=== PATIENT | male | born 1990 | race Two or more races ===

== ENCOUNTER 2025-01-02 23:38 | Inpatient (IN) | payer MEDICAID, OTHER ==
[~2025-01-02] VITALS: Ht 190.5 cm; Wt 52.7 kg
[2025-01-03] VITALS (13 sets, daily range): BP systolic 102–138; BP diastolic 65–92; PULSE 85–114; RESP 17–20; TEMP 97.9; O2SAT 95–100
--- NOTE | 2025-01-03 00:15 | ED.PDOC ---
History of Present Illness HPI Comments 34-year-old male who came to ER for flu-like symptoms. Patient is paraplegic, recently admitted for urinary tract infection, signed AMA 2 days ago. At home, patient apparently felt better until few hours ago when patient started having flu like symptoms, with congestion, cough, body malaise, weakness. Chief Complaint: Flu like Time Seen by MD: 00:15 Reviewed Notes: Nurses Notes Allergies: Coded Allergies: NO KNOWN ALLERGIES (Unverified , 01/02/25) Information Source: Patient Mode of Arrival: EMS Severity: Moderate Timing: Hours Duration: Since onset Prehospital treatment: None Past Medical History PAST MEDICAL HISTORY: UTI'S Past Medical History (Other): Paraplegic Surgical History: AKA Family History Family History: Reviewed,noncontributory to illness Social History Smoker: Non-Smoker Alcohol: Denies ETOH Use Drugs: Denies Drug Use Lives In: Home Constitutional: reports: fatigue, malaise, weakness; denies: chills, diaphoresis, fever, sweats, others EENTM: reports: nose congestion; denies: blurred vision, double vision, ear bleeding, ear discharge, ear drainage, ear pain, ear ringing, eye pain, eye redness, hearing loss, mouth pain, mouth swelling, nasal discharge, nose bleeding, nose pain, photophobia, tearing, throat pain, throat swelling, voice changes, others Respiratory: reports: cough, SOB at rest; denies: hemoptysis, orthopnea, shortness of breath, SOB with excertion, stridor, wheezing, others Cardiovascular: denies: chest pain, dizzy spells, diaphoresis, Dyspnea on exertion, edema, irregular heart beat, left arm pain, lightheadedness, palpitations, PND, syncope, others Gastrointestinal: denies: abdomen distended, abdominal pain, blood streaked bowels, constipated, diarrhea, dysphagia, difficulty swallowing, hematemesis, melena, nausea, poor appetite, poor fluid intake, rectal bleeding, rectal pain, vomiting, others Genitourinary: denies: burning, dysuria, flank pain, frequency, hematuria, incontinence, penile discharge, penile sore, pain, testicle pain, testicle swelling, urgency, others Neurological: denies: dizziness, fainting, headache, left sided numbness, left sided weakness, numbness, paresthesia, pre-existing deficit, right sided numbness, right sided weakness, seizure, speech problems, tingling, tremors, weakness, others Musculoskeletal: denies: back pain, gout, joint pain, joint swelling, muscle pain, muscle stiffness, neck pain, others Integumetry: denies: bruises, change in color, change in hair/nails, dryness, laceration, lesions, lumps, rash, wounds, others Allergic/Immunocompromised: denies: Difficulty Healing, Frequent Infections, Hives, Itching, others Hematologic/Lymphatic: denies: anemia, blood clots, easy bleeding, easy bruising, swollen glands, others Endocrine: denies: excessive hunger, excessive sweating, excessive thirst, excessive urination, flushing, intolerance to cold, intolerance to heat, unexplained weight gain, unexplained weight loss, others Psychiatric: denies: anxiety, bipolar disorder, depression, hopeless, panic disorder, schizophrenia, sleepless, suicidal, others Physical Exam General Appearance: No Apparent Distress, Normal HEENT: Normal ENT Inspection, Pharynx Normal, TMs Normal Neck: Full Range of Motion, Non-Tender, Normal, Normal Inspection Respiratory: Chest Non-Tender, Lungs Clear, No Accessory Muscle Use, No Respiratory Distress, Normal Breath Sounds Cardiovascular: No Edema, No JVD, No Murmur, No Gallop, Normal Peripheral Pulses, Regular Rate/Rhythm Breast Exam: Deferred Gastrointestinal: No Organomegaly, Non Tender, No Pulsatile Mass, Normal Bowel Sounds, Soft Genitalia: Deferred Pelvic: Deferred Rectal: Deferred Extremities: No calf tenderness, Normal capillary refill, Normal inspection, Normal range of motion, Non-tender, No pedal edema Musculoskeletal : Apperance: Normal Neurologic: Alert, rope machine setter II-XII nml as Tested, No Motor Deficits, Normal Affect, Normal Mood, No Sensory Deficits Cerebellar Function: Normal Reflexes: Normal Skin: Dry, Normal Color, Warm Lymphatic: No Adenopathy Was a procedure done? Was a procedure done?: No Differential Dx Considerations may include: Anemia, electrolyte imbalance, urinary tract infection, viral syndrome, influenza, upper respiratory infection X-Ray, Labs, Meds, VS Vital Signs Date Time Temp Pulse Resp B/P (MAP) Pulse Ox O2 Delivery O2 Flow Rate FiO2 01/02/25 23:39 98.0 98 16 138/92 (107) 98 Lab Test 01/02/25 23:59 Range/Units White Blood Count 7.8 4.4-10.8 10^3/uL Red Blood Count 6.54 H 4.5-5.90 10^6/uL Hemoglobin 14.1 13.5-17.5 g/dL Hematocrit 44.6 41.0-53.0 % Mean Corpuscular Volume 68.2 L 80.0-100.0 fL Mean Corpuscular Hemoglobin 21.5 L 28.0-32.0 pg Mean Corpuscular Hemoglobin Concent 31.6 L 32.0-36.0 g/dL Red Cell Distribution Width 19.5 H 11.8-14.3 % Platelet Count 428 140-450 10^3/uL Mean Platelet Volume 7.5 6.9-10.8 fL Neutrophils (%) (Auto) 45.6 37.0-80.0 % Lymphocytes (%) (Auto) 38.7 10.0-50.0 % Monocytes (%) (Auto) 13.1 H 0.0-12.0 % Eosinophils (%) (Auto) 2.0 0.0-7.0 % Basophils (%) (Auto) 0.6 0.0-2.0 % Neutrophils # (Auto) 3.5 1.6-8.6 10 ^3/uL Lymphocytes # (Auto) 3.0 0.4-5.4 10 ^3/uL Monocytes # (Auto) 1.0 0-1.3 10 ^3/uL Eosinophils # (Auto) 0.2 0-0.8 10 ^3/uL Basophils # (Auto) 0 0-0.2 10 ^3/uL Nucleated Red Blood Cells 0.3 % Sodium Level 135 L 136-145 mmol/L Potassium Level 4.2 3.5-5.1 mmol/L Chloride Level 103 98-107 mmol/L Carbon Dioxide Level 25 20-31 mmol/L Anion Gap 7 5-15 Blood Urea Nitrogen 10 9-23 mg/dL Creatinine 0.61 L 0.700-1.30 mg/dL Glomerular Filtration Rate Calc 130 >90 mL/min BUN/Creatinine Ratio 16.4 10.0-20.0 Serum Glucose 104 74-106 mg/dL Calcium Level 9.3 8.7-10.4 mg/dL EXAM: XY CHEST PORTABLE CLINICAL HISTORY: sob TECHNIQUE: Single AP view of the chest WID: COMPARISON: None FINDINGS: Lines and tubes: None Chest: The heart size and pulmonary vasculature is within normal limits. Hyperexpansion of the lungs with lucency of the lower lungs. The osseous structures are grossly intact. IMPRESSION: Lower lobe predominant lucency and emphysematous changes which could be panlobular emphysema possibly related to a-1 antitrypsin deficiency. Time of 1ST Reevaluation: 00:10 Reevaluation 1ST: Unchanged Patient Education/Counseling: Diagnosis, Treatment Family Education/Counseling: No Family Present Departure 1 Departure Time of Disposition: 02:24 (Patient likely with pneumonia. Discharge patient home with outpatient) Impression: Primary Impression: Pneumonia Qualified Codes: J18.9 - Pneumonia, unspecified organism Disposition: ADMITTED INPATIENT Admit to: Med Surg Condition: Serious Critical Care Note Critical Care Time?: No Stability Stability form required: No Heart Score Heart Score: Heart Score Response (Comments) Value History N/A 0 EKG N/A 0 Age N/A 0 Risk Factors N/A 0 Troponin N/A 0 Total 0 I personally scribed for ROBB MONROE MD ([employer]) on 01/03/25 at 00:15. Electronically submitted by Leel Mackey ([email or web address]). I personally scribed for ROBB MONROE MD ([employer]) on 01/03/25 at 02:23. Electronically submitted by Lele Mackey ([employer]). ROBB MONROE MD Jan 03, 2025 00:15
[2025-01-03 00:19] LABS: Chloride 103 mmol/L (98-107); Potassium 4.2 mmol/L (3.5-5.1)
[2025-01-03 00:20] LABS: Anion Gap 7 (5-15); Calcium 9.3 mg/dL (8.7-10.4); Carbon Dioxide 25 mmol/L (20-31)
[2025-01-03 00:25] LABS: BUN/Creatinine Ratio 16.4 (10.0-20.0); Blood Urea Nitrogen 10 mg/dL (9-23); Glucose 104 mg/dL (74-106)
[2025-01-03 00:36] LABS: Sodium 135 mmol/L (136-145)
--- NOTE | 2025-01-03 01:07 | DVH ---
EXAM: XY CHEST PORTABLE CLINICAL HISTORY: sob TECHNIQUE: Single AP view of the chest WID: COMPARISON: None FINDINGS: Lines and tubes: None Chest: The heart size and pulmonary vasculature is within normal limits. Hyperexpansion of the lungs with lucency of the lower lungs. The osseous structures are grossly intact. IMPRESSION: Lower lobe predominant lucency and emphysematous changes which could be panlobular emphysema possibly related to a-1 antitrypsin deficiency.
[2025-01-03 01:15] LABS: Basophils # (auto) 0 10 ^3/uL (0-0.2); Basophils % (auto) 0.6 % (0.0-2.0); Eosinophils # (auto) 0.2 10 ^3/uL (0-0.8); Hematocrit 44.6 % (41.0-53.0); Hemoglobin 14.1 g/dL (13.5-17.5); Lymphocytes % (auto) 38.7 % (10.0-50.0); Mean Corpuscular Hemoglobin 21.5 pg (28.0-32.0); Mean Corpuscular Hgb Conc. 31.6 g/dL (32.0-36.0); Mean Corpuscular Volume 68.2 fL (80.0-100.0); Monocytes % (auto) 13.1 % (0.0-12.0); Neutrophils # (auto) 3.5 10 ^3/uL (1.6-8.6); Neutrophils % (auto) 45.6 % (37.0-80.0); Nucleated Red Blood Cells % 0.3 %; Platelet Count (auto) 428 10^3/uL (140-450); Red Blood Cells 6.54 10^6/uL (4.5-5.90); Red Cell Distribution Width 19.5 % (11.8-14.3); White Blood Cell 7.8 10^3/uL (4.4-10.8)
[2025-01-03] MEDS: VANCOMYCIN 1GM/250ML KIT 200 ML IV ONE (02:30)
[2025-01-03] MEDS: AZITHROMYCIN 250 MG TAB PO ONE (02:30)
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
[2025-01-03] MEDS ORDERED: NITROGLYCERIN 0.4 MG SL TAB SL PRN (03:00)
[2025-01-03] MEDS: SODIUM CHLORIDE 0.9% 1,000 ML IV SCH (03:00)
[2025-01-03] MEDS ORDERED: ACETAMINOPHEN 325 MG TAB PO PRN (03:00)
[2025-01-03] MEDS ORDERED: BACLOFEN 10 MG TAB PO PRN (03:00)
[2025-01-03] MEDS ORDERED: DOCUSATE SOD 100 MG CAP PO PRN (03:00)
[2025-01-03] MEDS: ALBUTEROL SULF 2.5 MG/0.5ML(0.5%) NEB SOLN NEB PRN (03:30)
[2025-01-03 04:19] LABS: Urine Bacteria MANY /hpf (None Seen); Urine Blood 1+ /uL (Negative); Urine Clarity Turbid (Clear); Urine Color Colorless (Yellow); Urine Mucus FEW (None Seen); Urine Protein, UAD 1+ (Negative); Urine Specific Gravity 1.031 (1.001-1.035); Urine Squamous Epithelial Cell None Seen /hpf (<5); Urine Urobilinogen 2 mg/dL (Negative); Urine WBC 53 /HPF (0-3)
[2025-01-03] MEDS: ONDANSETRON HCL 4 MG/2 ML VIAL IV PRN (04:20)
[2025-01-03] MEDS: MORPHINE SULFATE INJ 2 MG/ml SYRG IV PRN (04:20)
[2025-01-03] MEDS: CEFEPIME 2GM/50ML NS 50 ML IV ONE (04:30)
[2025-01-03 05:49] LABS: Basophils # (auto) 0 10 ^3/uL (0-0.2); Basophils % (auto) 0.5 % (0.0-2.0); Eosinophils # (auto) 0.1 10 ^3/uL (0-0.8); Eosinophils % (auto) 1.4 % (0.0-7.0); Hematocrit 39.9 % (41.0-53.0); Hemoglobin 12.4 g/dL (13.5-17.5); Lymphocytes # (auto) 2.6 10 ^3/uL (0.4-5.4); Lymphocytes % (auto) 34.2 % (10.0-50.0); Mean Corpuscular Hemoglobin 21.2 pg (28.0-32.0); Mean Corpuscular Hgb Conc. 31.1 g/dL (32.0-36.0); Mean Corpuscular Volume 68.2 fL (80.0-100.0); Monocytes # (auto) 0.8 10 ^3/uL (0-1.3); Monocytes % (auto) 10.2 % (0.0-12.0); Neutrophils # (auto) 4.1 10 ^3/uL (1.6-8.6); Neutrophils % (auto) 53.7 % (37.0-80.0); Nucleated Red Blood Cells % 0.1 %; Platelet Count (auto) 413 10^3/uL (140-450); Red Blood Cells 5.85 10^6/uL (4.5-5.90); Red Cell Distribution Width 19.5 % (11.8-14.3); White Blood Cell 7.7 10^3/uL (4.4-10.8)
[2025-01-03 06:08] LABS: Alanine Aminotransferase 14 U/L (7-40); Albumin 3.8 g/dL (3.2-4.8); Alkaline Phosphatase 86 U/L (46-116); Anion Gap 7 (5-15); Aspartate Aminotransferase 14 U/L (13-40); BUN/Creatinine Ratio 25.4 (10.0-20.0); Blood Urea Nitrogen 15 mg/dL (9-23); Calcium 9.3 mg/dL (8.7-10.4); Carbon Dioxide 27 mmol/L (20-31); Chloride 101 mmol/L (98-107); Glucose 98 mg/dL (74-106)
[2025-01-03 06:09] LABS: Total Protein 7.5 g/dL (5.7-8.2)
[2025-01-03 06:22] LABS: Sodium 135 mmol/L (136-145)
[2025-01-03 06:35] LABS: Bilirubin, Total 0.2 mg/dL (0.2-1.0)
[2025-01-03] MEDS: HYDROcodone-ACET 5/325MG TAB PO PRN (08:52)
[2025-01-03] MEDS: SERTRALINE HCL 50 MG TAB PO SCH (10:00)
[2025-01-03] MEDS ORDERED: ALPR0.5T PO (10:14)
[2025-01-03] MEDS ORDERED: ASCO500T11 PO (10:14)
[2025-01-03] MEDS ORDERED: BACL10TA PO (10:14)
[2025-01-03] MEDS ORDERED: FERR28TA4 PO (10:14)
[2025-01-03] MEDS ORDERED: HYDR-4798 PO (10:14)
[2025-01-03] MEDS ORDERED: SERT100T PO (10:14)
[2025-01-03 11:19] LABS: Rapid Influenza A Negative (Negative); Rapid Influenza B Negative (Negative)
[2025-01-03 11:20] LABS: COVID19 ANTIGEN SOFIA FIA NEGATIVE (NEGATIVE)
[2025-01-03] MEDS ORDERED: VANCOMYCIN PER PHARMACY 0 MG IV SCH (13:00)
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
[2025-01-03] MEDS: SODIUM CHLORIDE 0.9% 1,000 ML IV ONE (13:45)
[2025-01-03] MEDS: CEFEPIME 1GM/ 50ML 50 ML IV SCH (14:00)
[2025-01-03] MEDS: VANCOMYCIN 1GM/250ML KIT 250 ML IV SCH (19:00)
[2025-01-04] VITALS (16 sets, daily range): BP systolic 107–122; BP diastolic 65–79; PULSE 84–117; RESP 16–20; TEMP 97.5–98.6; O2SAT 90–100
[2025-01-04] MEDS: SODIUM CHLORIDE 0.9% 500 ML IV ONE (03:54)
[2025-01-04 08:01] LABS: Basophils # (auto) 0 10 ^3/uL (0-0.2); Basophils % (auto) 0.4 % (0.0-2.0); Eosinophils # (auto) 0.1 10 ^3/uL (0-0.8); Eosinophils % (auto) 1.8 % (0.0-7.0); Hematocrit 42.2 % (41.0-53.0); Hemoglobin 13.2 g/dL (13.5-17.5); Lymphocytes # (auto) 2.4 10 ^3/uL (0.4-5.4); Lymphocytes % (auto) 38.2 % (10.0-50.0); Mean Corpuscular Hemoglobin 21.5 pg (28.0-32.0); Mean Corpuscular Hgb Conc. 31.2 g/dL (32.0-36.0); Mean Corpuscular Volume 68.7 fL (80.0-100.0); Monocytes # (auto) 0.8 10 ^3/uL (0-1.3); Monocytes % (auto) 12.4 % (0.0-12.0); Neutrophils % (auto) 47.2 % (37.0-80.0); Nucleated Red Blood Cells % 0.1 %; Platelet Count (auto) 393 10^3/uL (140-450); Red Blood Cells 6.14 10^6/uL (4.5-5.90); Red Cell Distribution Width 19.1 % (11.8-14.3); White Blood Cell 6.4 10^3/uL (4.4-10.8)
[2025-01-04 08:06] LABS: Anion Gap 6 (5-15); Calcium 9.7 mg/dL (8.7-10.4); Carbon Dioxide 29 mmol/L (20-31); Chloride 100 mmol/L (98-107); Glucose 77 mg/dL (74-106); Potassium 4.8 mmol/L (3.5-5.1)
[2025-01-04 08:07] LABS: Albumin 3.9 g/dL (3.2-4.8)
[2025-01-04 08:11] LABS: BUN/Creatinine Ratio 14.5 (10.0-20.0)
[2025-01-04 08:16] LABS: Alanine Aminotransferase 12 U/L (7-40); Alkaline Phosphatase 86 U/L (46-116); Aspartate Aminotransferase 10 U/L (13-40); Bilirubin, Total 0.3 mg/dL (0.2-1.0); Blood Urea Nitrogen 11 mg/dL (9-23); Sodium 135 mmol/L (136-145); Total Protein 7.9 g/dL (5.7-8.2)
[2025-01-04] MEDS ORDERED: cefTRIAXone 1GM/50ML D5W 50 ML IV SCH (09:00)
[2025-01-04] MEDS ORDERED: AZITHROMYCIN 500MG/ 250ML 250 ML IV SCH (10:00)
[2025-01-04] MEDS: MORPHINE SULFATE INJ 2 MG/ml SYRG IV PRN (14:28)
[2025-01-04] MEDS: IPRATROPIUM BROM 0.5 MG/2.5ML INH SOL NEB SCH (14:39)
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
[2025-01-04] MEDS: PANTOPRAZOLE 40 MG/10 ML VIAL INJ IV ONE (21:08)
[2025-01-04] MEDS: ENOXAPARIN SOD 100 MG/1 ML SYRINGE SC SCH (21:08)
[2025-01-04] MEDS: ACETYLCYSTEINE 20%(200MG/ML) SOL 4ML NEB SCH (22:33)
[2025-01-05] VITALS (19 sets, daily range): BP systolic 99–121; BP diastolic 58–77; PULSE 82–105; RESP 16–22; TEMP 97.8–98.5; O2SAT 95–100
[2025-01-05 09:44] LABS: Calcium 9.8 mg/dL (8.7-10.4); Chloride 100 mmol/L (98-107); Potassium 4.8 mmol/L (3.5-5.1)
[2025-01-05 09:45] LABS: Anion Gap 8 (5-15); Carbon Dioxide 27 mmol/L (20-31)
[2025-01-05 09:50] LABS: Glucose 82 mg/dL (74-106)
[2025-01-05 09:51] LABS: BUN/Creatinine Ratio 14.5 (10.0-20.0); Blood Urea Nitrogen 10 mg/dL (9-23); Magnesium 1.8 mg/dL (1.6-2.6)
[2025-01-05 09:52] LABS: Sodium 135 mmol/L (136-145)
[2025-01-05 09:53] LABS: Phosphorus 3.6 mg/dL (2.4-5.1)
[2025-01-05 10:03] LABS: Basophils # (auto) 0 10 ^3/uL (0-0.2); Basophils % (auto) 0.5 % (0.0-2.0); Eosinophils # (auto) 0.1 10 ^3/uL (0-0.8); Eosinophils % (auto) 1.1 % (0.0-7.0); Hematocrit 41.1 % (41.0-53.0); Lymphocytes # (auto) 2.8 10 ^3/uL (0.4-5.4); Lymphocytes % (auto) 32.9 % (10.0-50.0); Mean Corpuscular Hemoglobin 21.5 pg (28.0-32.0); Mean Corpuscular Hgb Conc. 31.5 g/dL (32.0-36.0); Mean Corpuscular Volume 68.4 fL (80.0-100.0); Monocytes # (auto) 1.2 10 ^3/uL (0-1.3); Monocytes % (auto) 14.2 % (0.0-12.0); Neutrophils # (auto) 4.3 10 ^3/uL (1.6-8.6); Neutrophils % (auto) 51.3 % (37.0-80.0); Nucleated Red Blood Cells % 0.4 %; Platelet Count (auto) 397 10^3/uL (140-450); Red Blood Cells 6.01 10^6/uL (4.5-5.90); Red Cell Distribution Width 19.1 % (11.8-14.3); White Blood Cell 8.4 10^3/uL (4.4-10.8)
[2025-01-05 10:06] LABS: INR 1.13 (0.9-1.15); Partial Thromboplastin Time 28.8 SEC (24.5-34.5); Prothrombin Time 11.8 sec (9.3-11.8)
[2025-01-05] MEDS: PANTOPRAZOLE 40 MG/10 ML VIAL INJ IV SCH (11:09)
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
[2025-01-05] MEDS: VANCOMYCIN 750MG KIT 100 ML IV SCH (17:52)
[2025-01-05] MEDS: Juven Orange Powder PACKET 27.5gm PO SCH (18:00)
[2025-01-05] MEDS: Ensure Enlive Strawberry 8oz Bottle PO SCH (18:00)
[2025-01-06] VITALS (14 sets, daily range): BP systolic 100–149; BP diastolic 61–82; PULSE 69–109; RESP 14–20; TEMP 97.9–99.5; O2SAT 93–100
[2025-01-06 07:58] LABS: Eosinophils # (auto) 0.1 10 ^3/uL (0-0.8); Monocytes # (auto) 0.9 10 ^3/uL (0-1.3)
[2025-01-06 08:02] LABS: Basophils # (auto) 0 10 ^3/uL (0-0.2); Basophils % (auto) 0.8 % (0.0-2.0); Calcium 9.8 mg/dL (8.7-10.4); Chloride 102 mmol/L (98-107); Hematocrit 40.9 % (41.0-53.0); Hemoglobin 12.9 g/dL (13.5-17.5); Lymphocytes % (auto) 34.5 % (10.0-50.0); Mean Corpuscular Hemoglobin 21.5 pg (28.0-32.0); Mean Corpuscular Hgb Conc. 31.5 g/dL (32.0-36.0); Mean Corpuscular Volume 68.2 fL (80.0-100.0); Neutrophils # (auto) 2.9 10 ^3/uL (1.6-8.6); Neutrophils % (auto) 48.7 % (37.0-80.0); Nucleated Red Blood Cells % 0.1 %; Platelet Count (auto) 389 10^3/uL (140-450); Potassium 4.4 mmol/L (3.5-5.1); Red Cell Distribution Width 19.1 % (11.8-14.3); Sodium 137 mmol/L (136-145); White Blood Cell 5.9 10^3/uL (4.4-10.8)
[2025-01-06 08:03] LABS: Anion Gap 7 (5-15); Carbon Dioxide 28 mmol/L (20-31)
[2025-01-06 08:09] LABS: BUN/Creatinine Ratio 18.4 (10.0-20.0); Blood Urea Nitrogen 14 mg/dL (9-23); Glucose 86 mg/dL (74-106)
[2025-01-06 08:43] LABS: Hepatitis B Surface Antigen Negative (Negative)
[2025-01-06 09:03] LABS: Hepatitis C Antibody Negative (Negative)
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
[2025-01-06] MEDS ORDERED: LEVO750T40 PO (12:52)
[2025-01-06] MEDS: LIDOCAINE VISCOUS 2% 15ML UD MT ONE (14:44)
== END 2025-01-06 18:37 | disposition home or self-care (01) | DRG 466 ==
LOC: EDBD 23:38 → ER 23:47 → OVERFLOW 01-03 02:50 → TELE-WESTW 01-03 18:05
PROVIDERS: ADMIT Student in an Organized Health Care Education/Training Program; ATTEND Emergency Medicine
DX: T83.518A Infection and inflammatory reaction due to other urinary catheter, initial encounter (principal); J15.69 Pneumonia due to other Gram-negative bacteria; E11.10 Type 2 diabetes mellitus with ketoacidosis without coma; L89.154 Pressure ulcer of sacral region, stage 4; E44.0 Moderate protein-calorie malnutrition; D68.69 Other thrombophilia; G82.20 Paraplegia, unspecified; J15.9 Unspecified bacterial pneumonia; Z20.822 Contact with and (suspected) exposure to COVID-19; N39.0 Urinary tract infection, site not specified; Z74.01 Bed confinement status; Z86.718 Personal history of other venous thrombosis and embolism; Z87.440 Personal history of urinary (tract) infections; Z68.1 Body mass index [BMI] 19.9 or less, adult
CPT/HCPCS: 36415; 71045; 80048; 80053; 80202; 81001; 83735; 84100; 85025; 85610; 85730; 86803; 87040; 87081; 87086; 87340; 87426; 87804; 94640; 94668; 96365; 96375; G0378; J0692; J2405; J2470

== ENCOUNTER 2025-05-06 22:23 | Emergency (ER) | payer MEDICAID ==
[~2025-05-06] VITALS: Ht 190.5 cm; Wt 47.7 kg
[~2025-05-06 22:23] MED LIST: ALPR0.5T PO; ASCO500T11 PO; BACL10TA PO; FERR28TA4 PO; HYDR-4798 PO; LEVO750T40 PO; SERT100T PO
[2025-05-06] MEDS: ALBUTEROL SULF 2.5 MG/0.5ML(0.5%) NEB SOLN NEB ONE (22:54)
[2025-05-06] MEDS: IPRATROPIUM BROM 0.5 MG/2.5ML INH SOL NEB ONE (22:55)
[2025-05-06 22:57] LABS: Basophils # (auto) 0.1 10 ^3/uL (0-0.2); Eosinophils # (auto) 0.1 10 ^3/uL (0-0.8); Hemoglobin 12.6 g/dL (13.5-17.5); Lymphocytes # (auto) 2.5 10 ^3/uL (0.4-5.4); Neutrophils # (auto) 4.2 10 ^3/uL (1.6-8.6); White Blood Cell 7.6 10^3/uL (4.4-10.8)
[2025-05-06 23:00] LABS: Eosinophils % (auto) 1.2 % (0.0-7.0); Hematocrit 39.1 % (41.0-53.0); Lymphocytes % (auto) 33.5 % (10.0-50.0); Mean Corpuscular Hgb Conc. 32.2 g/dL (32.0-36.0); Mean Corpuscular Volume 68.2 fL (80.0-100.0); Monocytes # (auto) 0.7 10 ^3/uL (0-1.3); Monocytes % (auto) 9.5 % (0.0-12.0); Neutrophils % (auto) 54.8 % (37.0-80.0); Nucleated Red Blood Cells % 0.1 %; Platelet Count (auto) 333 10^3/uL (140-450); Red Blood Cells 5.74 10^6/uL (4.5-5.90)
[2025-05-06 23:02] LABS: Chloride 101 mmol/L (98-107); Sodium 137 mmol/L (136-145)
[2025-05-06 23:03] LABS: Anion Gap 9 (5-15); Carbon Dioxide 27 mmol/L (20-31)
[2025-05-06 23:04] LABS: Calcium 9.6 mg/dL (8.7-10.4)
[2025-05-06 23:08] LABS: BUN/Creatinine Ratio 12.2 (10.0-20.0); Blood Urea Nitrogen 9 mg/dL (9-23); Glucose 89 mg/dL (74-106)
--- NOTE | 2025-05-06 23:38 | DVH ---
CHEST RADIOGRAPH Indication: sob Technique: Single frontal view of the chest was obtained COMPARISON: XY CHEST PORTABLE on DOS: 01/02/25 FINDINGS: Lines and Tubes: None Lungs: Grossly stable appearing hyperexpansion of the lungs with persistent increased lucency of the lower lung zones and evidence of bullous emphysematous change of the right lower lung zone. Pleura: No effusion. No pneumothorax. Cardiomediastinal contours: Unremarkable Bones: Unremarkable IMPRESSION: 1. Stable appearing lower lobe predominant lucency and emphysematous changes which could be panlobula r emphysema, possibly related to a-1 antitrypsin deficiency.
[2025-05-06] MEDS: methylPREDNISolone SOD SUCC 125 MG/2 ML VL IM ONE (23:48)
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
[2025-05-07 00:24] VITALS: RESP 19; O2SAT 97
[2025-05-07] MEDS: ONDANSETRON HCL 4 MG/2 ML VIAL IV ONE (00:56)
[2025-05-07] MEDS: MORPHINE SULFATE 4 MG/ML SYR/VIAL IV ONE (01:00)
[2025-05-07 01:03] LABS: COVID19 ANTIGEN SOFIA FIA NEGATIVE (NEGATIVE); Rapid Influenza A Negative (Negative); Rapid Influenza B Negative (Negative)
[2025-05-07] MEDS ORDERED: PRED20TA2 PO (01:29)
[2025-05-07] MEDS ORDERED: AUG875T PO (01:29)
[2025-05-07 02:00] VITALS: BP 121/79; PULSE 93; RESP 16; TEMP 98.6; O2SAT 96
--- NOTE | 2025-05-07 07:10 | ECG ---
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
== END 2025-05-07 02:16 | disposition home or self-care (01) ==
LOC: ER 22:23 → EDBD 22:23 → ER 05-07 02:16
DX: J18.9 Pneumonia, unspecified organism (principal); J45.909 Unspecified asthma, uncomplicated; Z87.440 Personal history of urinary (tract) infections; Z93.3 Colostomy status; Z79.899 Other long term (current) drug therapy; Z98.890 Other specified postprocedural states; Z20.822 Contact with and (suspected) exposure to COVID-19; Z86.711 Personal history of pulmonary embolism; Z86.718 Personal history of other venous thrombosis and embolism
CPT/HCPCS: 36415; 71045; 80048; 85025; 87426; 87804; 93005; 94640; 96372; 96374; 96375; 99285; J2270; J2405; J2919